=== PATIENT | female | born 2000 | race Caucasian/White ===

== ENCOUNTER 2019-04-11 18:38 | Emergency (ER) | payer OTHER ==
[~2019-04-11] VITALS: Ht 147.3 cm; Wt 63.9 kg
[2019-04-11 18:50] VITALS: BP 130/74
[2019-04-11] MEDS ORDERED: LIDOCAINE-MPF 1%, 5ML ONE ×2 (19:13→19:51)
[2019-04-11] MEDS ORDERED: LIDOCAINE-MPF 1%, 5ML INFIL ONE ×2 (19:30→20:00)
[2019-04-11] MEDS ORDERED: NEOSPORIN OINT. PKT 1 PACKET ONE (20:12)
== END 2019-04-11 20:15 | disposition home or self-care (01) ==
LOC: ED 20:09
DX: S61.210A Laceration without foreign body of right index finger without damage to nail, initial encounter (principal); W25.XXXA Contact with sharp glass, initial encounter; Y93.G1 Activity, food preparation and clean up; Y92.000 Kitchen of unspecified non-institutional (private) residence as the place of occurrence of the external cause; Y99.9 Unspecified external cause status
CPT/HCPCS: 12001; 99283

== ENCOUNTER 2019-04-20 16:03 | Emergency (ER) | payer OTHER ==
[~2019-04-20] VITALS: Ht 147.3 cm; Wt 63.3 kg
[2019-04-20 16:07] VITALS: BP 121/73
[2019-04-20] MEDS ORDERED: NEOSPORIN OINT. PKT 1 PACKET ONE (17:07)
== END 2019-04-20 17:20 | disposition home or self-care (01) ==
LOC: ED 17:01
DX: S61.210D Laceration without foreign body of right index finger without damage to nail, subsequent encounter (principal); W25.XXXD Contact with sharp glass, subsequent encounter
CPT/HCPCS: 99281; 99283

== ENCOUNTER 2020-05-22 18:18 | Emergency (ER) | payer OTHER ==
[~2020-05-22] VITALS: Ht 147.3 cm; Wt 65.2 kg
--- NOTE | 2020-05-22 20:43 | NUR ---
PATIENT WALKED BACK FROM [facility] WITH CHIEF C/O ABD LUMP AND PAIN. PER PATIENT SHE NOTICED A LUMP ON THE LEFT LOWER PART OF HER ABDOMEN YESTERDAY AND IT IS PAINFUL. PATIENT STATES SHE'S FELT NAUSEATED X1 MONTH, DENIES DIARRHEA AND VOMITING, DENIES FEVER, DENIES PAINFUL URINATION, PATIENT REPORTS REGULAR BMS. AMILCAR CARRERO, FRIEND AT BEDSIDE, CALL LIGHT WITHIN REACH.
--- NOTE | 2020-05-22 20:49 | NUR ---
ERMD AT BEDSIDE FOR EVALUATION.
--- NOTE | 2020-05-22 21:45 | NUR ---
PATIENT RESTING IN [place], AMILCAR, CALL LIGHT WITHIN REACH.
[2020-05-22 22:09] VITALS: BP 108/31
--- NOTE | 2020-05-22 22:10 | NUR ---
Patient given discharge instructions and they have confirmed that they understand the instructions. Patient stable and ambulatory with steady gait from ED with friend.
== END 2020-05-22 22:11 | disposition home or self-care (01) ==
LOC: ED 21:12
DX: R10.32 Left lower quadrant pain (principal); R10.31 Right lower quadrant pain
CPT/HCPCS: 76857; 99284

== ENCOUNTER 2020-12-18 21:47 | Outpatient (CLI) | payer OTHER ==
[~2020-12-18] VITALS: Ht 154.9 cm; Wt 77.1 kg
[2020-12-18 22:22] LABS: MICROSCOPIC NOT IND
[2020-12-18 23:02] LABS: BASOPHILS % (AUTO) 1 % (0-1); EOSINOPHILS % (AUTO) 2 % (1-7); LYMPHOCYTES % (AUTO) 28 % (22-44); MEAN CORPUSCULAR HEMOGLOBIN 25.9 pg (27.0-34.8); MEAN PLATELET VOLUME 9.4 fL (7.4-10.4); MONOCYTES % (AUTO) 8 % (2-9); NEUTROPHILS % (AUTO) 61 % (42-75); PLATELET COUNT 251 x10^3/uL (130-400); RED BLOOD COUNT 4.29 x10^6/uL (3.82-5.3); RED CELL DISTRIBUTION WIDTH 15.7 % (9.6-15.2)
[2020-12-18 23:09] LABS: ALANINE AMINOTRANSFERASE 13 U/L (12-78); ALBUMIN 2.2 g/dL (3.4-5.0); ANION GAP 7 mmol/L (5-15); CALCIUM 8.2 mg/dL (8.5-10.1); CHLORIDE 110 mmol/L (98-107)
[2020-12-18 23:11] LABS: ALKALINE PHOSPHATASE 217 U/L (45-117); BILIRUBIN,TOTAL 0.2 mg/dL (0.2-1.0); TOTAL PROTEIN 6.4 g/dL (6.4-8.2)
[2020-12-18 23:24] LABS: TOTAL PROTEIN,URINE RANDOM 7 mg/dL (0-12)
[2020-12-18 23:26] LABS: BILIRUBIN, DIRECT < 0.1 mg/dL (0.1-0.2)
[2020-12-18 23:26] LABS: CREATININE,URINE RANDOM < 13.00 mg/dL; PROTEIN/CREATININE RATIO,URINE 538 (0-200)
[2020-12-18 23:46] LABS: MICROSCOPIC NOT IND
== END 2020-12-19 00:07 | disposition home or self-care (01) ==
LOC: LDOP 21:47
PROVIDERS: ATTEND Obstetrics & Gynecology
DX: O26.893 Other specified pregnancy related conditions, third trimester (principal); R10.9 Unspecified abdominal pain; Z3A.37 37 weeks gestation of pregnancy
CPT/HCPCS: 36415; 59025; 80053; 81003; 82248; 82570; 84156; 84550; 85025; 87086